=== PATIENT | female | born 1995 | race Hispanic/Latino ===

== ENCOUNTER 2023-07-22 19:03 | Emergency (ER) | payer OTHER, SELFPAY ==
[2023-07-22 19:07] VITALS: BP 152/90
[2023-07-22 20:47] VITALS: BMI 32.3
--- NOTE | 2023-07-22 23:54 | ED.GENMED ---
History of Present Illness
General
Chief Complaint: Throat Problem
Source: patient
Exam Limitations: none
Time Seen by Provider: 07/22/23 20:59
Nursing documentation reviewed up to this point in time: agreed with
Travel History
Have you had any contact with someone who has COVID-19?: No
Do you have any symptoms of coronavirus? Fever > 100 degrees, chills, cough, shortness of breath, sore throat, loss of taste or smell, muscle aches, or headache?: No
History of Present Illness
History of Present Illness:
Patient to ED with complaint of bilateral ear pain and white spots on throat, Symptoms started yesterday. No fever/chiills. No difficulty breathing or swallowing.To ED accompanied by sig/other
Past History
Past History
ED Past Medical History: None
ED Past Surgical History: None
Social History
Tobacco: Non-smoker
Alcohol: None
Drug: None
Personal:
Living: with family
Review of Systems
Review of Systems
Allergies reviewed?: Yes
All Other Systems: ROS reviewed and negative except as documented in HPI and ROS
Constitutional: Reports no symptoms
EENT: Reports other (bilateral ear pain, white spots on throat.)
Respiratory: Reports no symptoms
Cardiac: Reports no symptoms
ABD/GI: Reports no symptoms
: Reports no symptoms
Musculoskeletal: Reports no symptoms
Skin: Reports no symptoms
Neurological: Reports no symptoms
Psychiatric: Reports no symptoms
Phy Exam
General Physical Exam
General Presentation: well appearing and no apparent distress
General age: appears stated age
ENT Exam
ENT Exam: EOMI, TM's normal, pharynx normal, neck supple, normocephalic and swallowing well
Eye Exam
Eye Exam: PERRL, EOMI and conjunctiva normal
Cardiovascular Exam
Cardiovascular Exam: regular rate/rhythm
Pulmonary Exam
Pulmonary Exam: lungs clear and no respiratory distress
Musculoskeletal Exam
Musculoskeletal Exam: full ROM and no edema
Skin Exam
Skin Exam: normal color, warm/dry and no rash
Psychiatric Exam
Psychiatric Exam: normal mood/affect
Course
Orders/Labs/Results
Orders:
Orders
07/22/23 19:14
Rapid Strep Group A Urgent
BEATRIZ Source: Throat/Pharynx
Specimen Description:
Date Specimen was Collected: 07/22/23
Time Specimen was Collected: 19:11
Vital Signs
Initial and Last Documented VS:
Initial Vital Signs
Temp Pulse Resp BP Pulse Ox
98.3 F 92 22 152/90 98
07/22/23 19:07 07/22/23 19:07 07/22/23 19:07 07/22/23 19:07 07/22/23 19:07
Last Documented Vital Signs
Temp Pulse Resp BP Pulse Ox
98.3 F 92 22 152/90 98
07/22/23 19:07 07/22/23 19:07 07/22/23 19:07 07/22/23 19:07 07/22/23 19:07
*Critical Care Note
Total Time (30-74mins, 75-104mins- exclusive of procedures): Not Applicable
ED Attending Note
-
Portions of this chart may have been created with voice recognition software.� Occasional wrong word or��sound alike� substitutions may have occurred due to the inherent limitations of voice recognition software.
Discharge Plan
Departure
Patient Disposition: Home (Routine Discharge)
Date of Disposition: 07/22/23
Time of Disposition: 21:18
Patient with high blood pressure during this ER visit?: No
Condition: Good
Covid-19: Not Applicable
Discharge Problem:
Acute ear pain, Sorethroat
Instructions: Sore Throat, Adult ED
Prescriptions:
No Action
No Current Medications
0
Referrals:
[facility] - Next open appointment
NONE,* [Family Provider] -
Interventions
Interventions:
*Risk Screen - Suicide Last Done: 07/22/23 19:07
*General Assessment Last Done: 07/22/23 20:48
*Neglect/Abuse Screening Last Done: 07/22/23 19:07
ED- Fall Risk Assessment Last Done: 07/22/23 20:49
*ED COVID-19 Vaccine History Last Done: 07/22/23 20:48
*Nursing Disposition Last Done: 07/22/23 21:30
ED-EENT Assessment Last Done: 07/22/23 20:48
ED- Pulmonary Assessment Last Done: 07/22/23 20:48
Discharge Date and Time
Discharge Date/Time: 07/22/23 21:30
Print Language: LAO
== END 2023-07-22 21:30 | disposition home or self-care (01) ==
LOC: EMR 19:03
PROVIDERS: EMERGENCY PHYSICIAN Emergency Medicine
DX: H92.03 Otalgia, bilateral (principal); R07.0 Pain in throat
CPT/HCPCS: 99283; 87070; 87880

== ENCOUNTER 2024-08-14 10:25 | Emergency (ER) | payer MEDICAID, SELFPAY ==
[2024-08-14 10:31] VITALS: BP 125/81
[2024-08-14 11:01] LABS: Urine Albumin 2+ (Neg - Trace); Urine Bilirubin Negative (Negative); Urine Character Cloudy (Clear); Urine Color Yellow; Urine Glucose Negative (Negative); Urine Ketone Negative (Negative); Urine Leukocyte 3+ (Negative); Urine Nitrite Negative (Negative); Urine Occult Blood 4+ (Negative); Urine Specific Gravity 1.015 (<1.030); Urine Urobilinogen Negative (Neg - 1+)
[2024-08-14 11:06] LABS: HCG, Urine Qualitative Screen Negative
[2024-08-14 11:10] LABS: Urine Squamous Cell >30 /LPF (Few)
[2024-08-14 11:14] VITALS: BMI 30.6
[2024-08-14 11:14] LABS: Urine Amorphous Seen
[2024-08-14 11:15] LABS: Urine White Cell 90-100 /HPF (0-5)
[2024-08-14] MEDS: ZOFRAN 4 MG IV (11:15)
[2024-08-14] MEDS: TORADOL 30 MG IV (11:15)
[2024-08-14] MEDS: NSS 1000 IV (11:15)
[2024-08-14 11:16] LABS: Urine Bacteria Many (Negative); Urine Red Blood Cell >100 /HPF (0-2)
[2024-08-14 11:18] LABS: % Basophils 0.5 % (0-2); % Eosinophils 0.3 % (0-6); % Immature Granulocytes 0.3 % (0-0.5); % Lymphocytes 19.1 % (20.5-51.1); % Monocytes 4.8 % (1.7-9.3); Absolute Basophils 0.1 10^3/uL (0-0.2); Absolute Monocytes 0.5 10^3/uL (0.1-0.6); Absolute Neutrophils 7.7 10^3/uL (1.4-6.5); Hemoglobin 11.9 g/dL (12.0-16.0); Mean Corp Hgb Conc. 33.1 g/dL (33.0-37.0); Mean Corpuscular Volume 78.8 fL (81.0-99.0); Mean Platelet Volume 9.9 fL (7.4-10.4); Nucleated Red Blood Cells % 0 %; Platelet Count 346 10^3/uL (130-400); Red Blood Cell Count 4.57 10^6/uL (4.20-5.40); Red Cell Dist. Width 13.2 % (11.5-14.5); White Blood Cell Count 10.3 10^3/uL (4.8-10.8)
[2024-08-14 11:34] LABS: Blood Urea Nitrogen 6 mg/dl (7-17); Calcium 9.1 mg/dl (8.4-10.2); Carbon Dioxide 26 mmol/L (22-30); Chloride 110 mmol/L (98-107); Estimated Creatinine Clearance > 125 ml/min; Glucose 123 mg/dl (70-99); Sodium 140 mmol/L (135-145); eGFR > 60.00
--- NOTE | 2024-08-14 11:39 | ED.GENMED ---
History of Present Illness
General
Chief Complaint: Flank Pain
Source: patient
Exam Limitations: none
Time Seen by Provider: 08/14/24 10:34
Nursing documentation reviewed up to this point in time: agreed with
History of Present Illness
History of Present Illness:
9-year-old female with no medical problems presents for nausea that began last night followed by right-sided lower abdominal pain rating to her right back this morning,, the pain is about 8 out of 10. Patient did not take anything. She has had
normal bowel movements, no urinary symptoms
She just recently returned from a trip she says she is feels dehydrated. Patient has never had a kidney stone. She did not try anything for her
Nausea. Patient has not had a menstrual cycle in about 2 months, this is pretty typical for her that she has irregular periods
Past History
Past History
ED Past Medical History: None
ED Past Surgical History: None
Social History
Tobacco: Non-smoker
Alcohol: None
Drug: None
Personal:
Living: with family
Review of Systems
Review of Systems
Allergies reviewed?: Yes
All Other Systems: Not applicable
Phy Exam
Physical Exam
Physical Exam:
GENERAL: Alert , in no apparent distress
EYE: pupils equal and reactive
NECK: Supple
ENT: o/p clr, mmm.
CARDIAC: Regular rate and rhythm .
LUNGS: Clear breath sounds bilaterally, no acute respiratory distress, no wheezes/rales/rhonchi
ABDOMEN: Soft, mild right lower quad tendenress, no r/g, no cvat, normal bowel sounds, McBurney's point tenderness
NEUROLOGICAL: Alert and oriented, no focal neuro deficits
SKIN: Warm and dry, skin intact.
MUSCULOSKELETAL: No edema, well perfused.
PSYCH: Normal and appropriate interaction.
Course
Orders/Labs/Results
Orders:
Orders
08/14/24 10:33
Test Result ONCE
08/14/24 10:38
, Urine Qualitative Screen [HCG, Urine Qualitative Screen] Urgent
Date Specimen was Collected: 08/14/24
Time Specimen was Collected: 10:33
Urinalysis Reflex To Culture Urgent
Date Specimen was Collected: 08/14/24
Time Specimen was Collected: 10:33
Urine Microscopic Reflex Cult Urgent
Urine Culture Urgent
BEATRIZ Source: U
Specimen Description:
Date Specimen was Collected: 08/14/24
Time Specimen was Collected: 10:33
08/14/24 10:58
CT Abd/Pel (IV only)-DH only Urgent
Comment:
Reason For Exam: RLQ pain, nausea
0.9% Sodium Chloride 1000 ml [Nss] 1,000 ml IV BOLUS
Ketorolac [Toradol] 30 mg IV NOW STA
Ondansetron Injectable [Zofran] 4 mg IV NOW STA
08/14/24 11:10
Basic Metabolic Panel Urgent
Complete Blood Count/With Diff Urgent
08/14/24 13:14
CefTRIAXone [Rocephin] 2,000 mg IV NOW STA
08/14/24 13:23
Sterile Water [Sterile Water For Injection] 20 ml .ROUTE .STK-MED
08/14/24 13:25
Morphine Sulfate 4 mg IV NOW STA
Pelvis & Transvaginal US [US Pelvis W Transvag Combined] Urgent
Comment:
Reason For Exam: R lower pain, eval torsion/cyst/TOA
Abnormal Lab Results
08/14/24 08/14/24
10:38 11:10
Hgb 11.9 L g/dL
(12.0-16.0)
Hct 36.0 L %
(37.0-47.0)
MCV 78.8 L fL
(81.0-99.0)
MCH 26.0 L pg
(27.0-31.0)
Absolute Neuts (auto) 7.7 H 10^3/uL
(1.4-6.5)
Lymphocytes % 19.1 L %
(20.5-51.1)
Chloride 110 H mmol/L
(98-107)
BUN 6 L mg/dl
(7-17)
Glucose 123 H mg/dl
(70-99)
Ur Occult Blood Reflex 4+ A
(Negative)
Leukocyte Esterase Rfl 3+ A
(Negative)
Urine RBC >100 A /HPF
(0-2)
Urine WBC (Reflex) 90-100 A /HPF
(0-5)
Urine Bacteria (Reflex) Many A
(Negative)
Urine Albumin (Reflex) 2+ A
(Neg - Trace)
08/14/24 11:10
08/14/24 11:10
Vital Signs
Initial and Last Documented VS:
Initial Vital Signs
Temp Pulse Resp BP Pulse Ox
98.6 F 70 18 125/81 98
08/14/24 10:31 08/14/24 10:31 08/14/24 10:31 08/14/24 10:31 08/14/24 10:31
Last Documented Vital Signs
Temp Pulse Resp BP Pulse Ox
98.6 F 70 18 102/69 97
08/14/24 10:31 08/14/24 10:31 08/14/24 10:31 08/14/24 12:00 08/14/24 12:00
ED Attending Note
-
Portions of this chart may have been created with voice recognition software.� Occasional wrong word or��sound alike� substitutions may have occurred due to the inherent limitations of voice recognition software.
Discharge Plan
Departure
Patient Disposition: Home (Routine Discharge)
Date of Disposition: 08/14/24
Time of Disposition: 17:31
Discharge Problem:
Abdominal pain, UTI (urinary tract infection)
Instructions: Flank Pain (DC), Urinary tract infection in adults - ED discharge instructions
Prescriptions:
New
cefdinir 300 mg capsule
300 mg PO BID Qty: 14 0RF
Referrals:
NONE,* [Family Provider] -
Activity Restrictions/Additional Instructions:
Were not sure the cause of your pain, your imaging was reassuring but you do have signs of a bladder infection so when to treat you with antibiotics, take cefdinir twice a day for 7 days. Drink fluids, eat bland food, use Tylenol and ibuprofen for
pain. Return for any significant concerns like high fever, repeated vomiting, severe pain, inability to urinate, or any concern
Interventions
Interventions:
*Risk Screen - Suicide Last Done: 08/14/24 10:31
*General Assessment Last Done: 08/14/24 10:31
*Neglect/Abuse Screening Last Done: 08/14/24 10:31
*Nursing Disposition Last Done: 08/14/24 17:36
SY-Fsgzbv-Kjeobuwgwt Assessment Last Done: 08/14/24 11:15
ED-Female Genitourinary Assessment Last Done: 08/14/24 11:15
Discharge Date and Time
Discharge Date/Time: 08/14/24 17:40
Print Language: SAMI
[2024-08-14 12:00] VITALS: BP 102/69
[2024-08-14] MEDS: ROCEPHIN 2000 MG IV (13:26)
[2024-08-14] MEDS: MORPHINE SULFATE 4 MG IV (13:32)
== END 2024-08-14 17:40 | disposition home or self-care (01) ==
LOC: EMR 10:25
PROVIDERS: Physician Assistant; EMERGENCY PHYSICIAN Emergency Medicine
DX: R10.31 Right lower quadrant pain (principal); N39.0 Urinary tract infection, site not specified
CPT/HCPCS: 99284; 96374; 96375; 96361; 74177; 76830; 76856; 80048; 81003; 81015; 81025; 85025; 87086; Q9967